=== PATIENT | female | born 1965 | race African-American/Black ===

== ENCOUNTER 2023-11-23 20:01 | Emergency (ER) | payer OTHER, SELFPAY | END 2023-11-23 22:25 | disposition home or self-care (01) | LOC: CSHERS 20:01 | DX: M79.602 Pain in left arm (principal); M79.605 Pain in left leg; E11.9 Type 2 diabetes mellitus without complications; I10 Essential (primary) hypertension; V89.2XXA Person injured in unspecified motor-vehicle accident, traffic, initial encounter; Z55.0 Illiteracy and low-level literacy | CPT/HCPCS: 99283 ==